=== PATIENT | female | born 1980 | race Caucasian/White ===

== ENCOUNTER 2017-07-10 08:45 | Inpatient (IN) | payer OTHER ==
[~2017-07-10] VITALS: Ht 162.6 cm; Wt 140.0 kg
[2017-07-10 08:51] VITALS: BP 129/60
[2017-07-10] MEDS ORDERED: OXYTOCIN 30U/ 0.9% NaCL 500ML 500 ML IV ONE (09:18)
[2017-07-10] MEDS ORDERED: OXYTOCIN 30U/ 0.9% NaCL 500ML 500 ML IV PRN (09:18)
[2017-07-10] MEDS ORDERED: MISOPROSTOL 200 MCG TABLET ONE ×2 (09:19→15:08)
[2017-07-10] MEDS ORDERED: FENTANYL PF 100 MCG/2ML IVPush PRN (09:30)
[2017-07-10] MEDS ORDERED: RHOGAM FROM BLOOD BANK 1 NOTE EA IM/IV PRN (09:30)
[2017-07-10] MEDS ORDERED: OXYcodone/APAP 5/325MG TABLET PO PRN (09:30)
[2017-07-10] MEDS ORDERED: MISOPROSTOL 200 MCG TABLET PR PRN ×2 (09:30→22:00)
[2017-07-10] MEDS ORDERED: OXYcodone/APAP 10/325MG TABLET PO PRN (09:30)
[2017-07-10] MEDS ORDERED: ONDANSETRON 2MG/ML, 2ML IVPush PRN (09:30)
[2017-07-10] MEDS ORDERED: IBUPROFEN 600 MG TABLET PO PRN ×2 (09:30→22:00)
[2017-07-10] MEDS ORDERED: CALCIUM CARBONATE 500 MG TAB.CHEW PO PRN (09:30)
[2017-07-10] MEDS: MISOPROSTOL 200 MCG TABLET VG SCH ×2 (09:48→15:30)
[2017-07-10] MEDS: LACTATED RINGERS 1,000 ML IV SCH ×3 (09:48→22:10)
[2017-07-10 09:49] LABS: DAU SCREEN DISCLAIMER
[2017-07-10 10:31] LABS: HEMOGLOBIN 10.2 g/dL (11.7-16.4); WHITE BLOOD COUNT 6.2 x10^3/uL (3.4-10)
[2017-07-10] MEDS ORDERED: FENTANYL PF 100 MCG/2ML ONE ×2 (19:31→20:25)
[2017-07-10] MEDS ORDERED: OXYTOCIN 30U/ 0.9% NaCL 500ML 500 ML ONE (19:31)
[2017-07-10] MEDS: FENTANYL PF 100 MCG/2ML IVPush PRN ×2 (19:36→20:39)
[2017-07-10] MEDS ORDERED: OXYTOCIN 30U/ 0.9% NaCL 500ML 500 ML IV SCH ×2 (21:43)
[2017-07-10] MEDS ORDERED: ONDANSETRON 2MG/ML, 2ML IV PRN (22:00)
[2017-07-10] MEDS ORDERED: OXYcodone IR 5MG TABLET PO PRN ×2 (22:00)
[2017-07-10] MEDS ORDERED: IBUPROFEN 600 MG TABLET ONE (22:05)
[2017-07-11 07:22] LABS: HEMATOCRIT 25.4 % (34.6-47.8); HEMOGLOBIN 8.3 g/dL (11.7-16.4); WHITE BLOOD COUNT 8.6 x10^3/uL (3.4-10)
[2017-07-11 08:25] LABS: ANISOCYTOSIS 1+; MICROCYTOSIS 1+; OVALOCYTES 1+; POIKILOCYTOSIS 1+
[2017-07-11] MEDS ORDERED: PRENATAL VIT/IRON/FA 1 EACH TABLET PO SCH (09:00)
== END 2017-07-11 08:30 | disposition home or self-care (01) | DRG 775 ==
LOC: LDIP 08:45
PROVIDERS: ADMIT Obstetrics & Gynecology Maternal & Fetal Medicine; ATTEND Obstetrics & Gynecology Maternal & Fetal Medicine
PROC: 10E0XZZ Delivery of Products of Conception, External Approach (ICD-10-PCS; principal; 2017-07-10)
DX: O36.4XX0 Maternal care for intrauterine death, not applicable or unspecified (principal); Z37.1 Single stillbirth; O69.1XX0 Labor and delivery complicated by cord around neck, with compression, not applicable or unspecified; Z3A.20 20 weeks gestation of pregnancy
CPT/HCPCS: 36415; 80307; 85025; 86850; 86900; 88305; J3010; G0479; J2590; J7120